=== PATIENT | female | born 1940 | race Caucasian/White ===

== ENCOUNTER 2016-09-06 11:37 | Outpatient (CLI) | payer OTHER, MEDICAID ==
[2012-11-12 17:34] VITALS: BP 105/60
== END 2016-09-06 11:40 ==
LOC: CARD 11:37
PROVIDERS: ATTEND Internal Medicine Cardiovascular Disease
DX: I42.9 Cardiomyopathy, unspecified (principal)
CPT/HCPCS: G0463

== ENCOUNTER 2017-09-19 13:54 | Outpatient (CLI) | payer OTHER ==
[2012-11-12 17:34] VITALS: BP 105/60
== END 2017-09-19 13:55 ==
LOC: CARD 13:54
PROVIDERS: ATTEND Internal Medicine Cardiovascular Disease
DX: I42.9 Cardiomyopathy, unspecified (principal); I10 Essential (primary) hypertension; Z72.0 Tobacco use; E78.5 Hyperlipidemia, unspecified; J44.9 Chronic obstructive pulmonary disease, unspecified
CPT/HCPCS: G0463

== ENCOUNTER 2018-08-14 11:28 | Outpatient (CLI) | payer OTHER ==
[2012-11-12 17:34] VITALS: BP 105/60
[2018-08-14 12:07] LABS: BASOPHILS % 0.7 (0.0-1.5); EOSINOPHILS % 7.7 % (0.0-6.8); MEAN CORPUSCULAR HEMOGLOBIN 31.4 pg (28.0-34.0); MONOCYTES % 6.1 % (0.0-11.0)
[2018-08-14 12:08] LABS: eGFR (Non-African) > 60
--- NOTE | 2018-08-14 12:23 | Diagnostic Imaging Report ---
ONEL DENIS [facility] [address] [facility] [address] 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 There are findings consistent with COPD. In the region of the right middle lobe, there is an asymmetric, lobulated, soft tissue density focus measuring 3.3 x 2.6 cm. Additionally, there is an asymmetric soft tissue density focus in the left perihilar region measuring 2.8 x 2.5 cm, partly obscured by the patient's pacemaker battery pack. There is a triple lead pacing device. There is no pleural effusion. Heart size is top normal with mild left ventricular prominence. There is pleural parenchymal thickening and nodularity at the right lung apex, probably chronic. Surgical clips are present of the right axilla. Impression: Asymmetric, rounded areas of soft tissue density are present in the region of the right middle lobe and in the left perihilar region, concerning for malignancy. Chest CT would be indicated for further assessment. COPD. Electronically signed on Aug 14, 2018 12:19:33 PM INCINERATOR PLANT [employer]ORER by: Viviana ESCOBEDO
--- NOTE | 2018-08-14 12:24 | Diagnostic Imaging Report ---
ONEL DENIS [facility] [address] [facility] [address] [address] Report Submission Date: Aug 14, 2018 12:22:34 PM FLOWER [employer]OP MANAGER Patient Study Name: TANVIR EWING Date: Aug 14, 2018 11:41:53 AM FLOWER SHOP MANAGER Modality Type: DX Gender: F Description: ABDOMEN : 42 Institution: [facility] Physician: ONEL DENIS KUB History: Constipation Two supine views of the abdomen were obtained which demonstrate diffusely increased stool throughout the colon consistent with moderate to severe constipation. No dilated loops of large or small bowel are noted. There is severe levorotary scoliosis of the lumbar spine. Impression: Moderate to severe constipation. Severe levorotary scoliosis of the lumbar spine. Electronically signed on Aug 14, 2018 12:22:34 PM FLOWER SHOP MANAGER by: Viviana ESCOBEDO
== END 2018-08-14 11:30 ==
LOC: LAB 11:28
PROVIDERS: ATTEND Family Medicine
DX: I25.10 Atherosclerotic heart disease of native coronary artery without angina pectoris (principal); K59.09 Other constipation; R91.8 Other nonspecific abnormal finding of lung field
CPT/HCPCS: 36415; 71046; 74018; 80053; 80061; 85025

== ENCOUNTER 2018-08-16 08:53 | Outpatient (CLI) | payer OTHER ==
[2012-11-12 17:34] VITALS: BP 105/60
--- NOTE | 2018-08-16 15:03 | Diagnostic Imaging Report ---
ONEL DENIS [facility] [address] [facility] [address] [address] Report Submission Date: Aug 16, 2018 2:29:35 PM LABEL FUSER TENDER Patient Study Name: TANVIR EWING Date: Aug 16, 2018 9:20:43 AM LABEL FUSER TENDER Modality Type: CT\SR Gender: F Description: CT CHEST W/ CONTRAST : 42 Institution: [facility] Physician: ONEL DENIS CT CHEST W/ CONTRAST HISTORY: ABDNORMAL CXR FROM 08/14/18, NO CHEST COMPLAINTS. TECHNIQUE: Scans through the chest are obtained following IV contrast administration 95 mL of omnipaque. FINDINGS: Multifocal nodules are present in both lungs with nodule in the anterior left upper lobe measuring 2.2 x 2 x 2.7 cm, with a nodule more inferiorly positioned in the anterior left upper lobe measuring 1.3 cm in diameter, nodular infiltrate in the lateral right middle lobe measuring 1 x 1.8 x 1 cm, nodule more centrally in the right middle lobe measuring 1.1 cm in diameter, and a 9 mm nodule in the medial right lower lobe. Multiple bilateral nodules such as this is suspicious for metastasis. Other possibility would be that of septic emboli in the appropriate clinical situation. Scarring in the apex is present. No infiltrative changes in the lungs are otherwise seen. No abnormal mediastinal or axillary adenopathy is identified. Aneurysmal dilatation of the ascending aorta is seen at 4 cm. Coronary artery calcifications are present otherwise the cardiovascular structures are unremarkable with normal pulmonary arteries without pulmonary emboli. A pacemaker overlies the left upper chest with electrodes in the right heart. Mild degenerative changes of the bony thorax is seen but no other focal abnormality is identified. Liver, gallbladder, spleen, pancreas, adrenal glands, and kidneys included on the study are unremarkable. IMPRESSION: Multifocal nodular densities in the lungs suspicious for metastasis. Aneurysmal dilatation of the ascending aorta. Electronically signed on Aug 16, 2018 2:29:35 PM LABEL FUSER TENDER by: Demar ESCOBEDO
== END 2018-08-16 08:55 ==
LOC: RAD 08:53
PROVIDERS: ATTEND Family Medicine
DX: R91.8 Other nonspecific abnormal finding of lung field (principal)
CPT/HCPCS: 71260; Q9967

== ENCOUNTER 2018-12-10 11:14 | Outpatient (CLI) | payer OTHER ==
[2012-11-12 17:34] VITALS: BP 105/60
--- NOTE | 2018-12-10 12:32 | Diagnostic Imaging Report ---
ONEL DENIS [facility] [address] [facility] [address] [place], [place]. [address] Report Submission Date: December 10, 2018 12:21:56 PM CDT Patient Study Name: TANVIR EWING Date: December 10, 2018 11:20:06 AM CDT Modality Type: CT Gender: F Description: CT C-SPINE W/O CONTRAS : 42 Institution: [facility] Physician: ONEL DENIS CT cervical spine without contrast History: Metastatic breast cancer Technique: Helically acquired images were obtained through the cervical spine without contrast. Findings: The dens is intact. The lateral masses of C1 and C2 are aligned. Vertebral body height is maintained throughout. There is moderate disc space narrowing at C6/7. No suspicious lytic or sclerotic lesions of the cervical spine are noted. At C3/4, there is moderate left foraminal narrowing secondary to facet arthropathy. At C4/5, there is moderate to severe facet arthropathy. The left foramen is patent. There is moderate right foraminal narrowing secondary to facet arthropathy and uncovertebral joint hypertrophy. At C5/6, there is moderate right foraminal narrowing secondary to facet arthropathy and uncovertebral joint hypertrophy. There is no central stenosis and the left foramen is patent. At C6/7, there is moderate left and severe right foraminal narrowing secondary to facet arthropathy and uncovertebral joint hypertrophy but there is no central stenosis. C7/T1: Unremarkable. There is an abnormal mixed solid and cystic mass at the lower pole of the left thyroid lobe measuring approximately 1.7 x 1.1 cm. Impression: No evidence for metastatic disease to the cervical spine. Degenerative findings of the cervical spine as described. Abnormal mixed solid and cystic mass of the lower pole of the left thyroid lobe. Consider thyroid ultrasound. Electronically signed on December 10, 2018 12:21:56 PM CDT by: Viviana ESCOBEDO
--- NOTE | 2018-12-10 12:33 | Diagnostic Imaging Report ---
ONEL DENIS [facility] [address] [facility] [address] [place], [place]. [address] Report Submission Date: December 10, 2018 12:32:37 PM CDT Patient Study Name: TANVIR EWING Date: December 10, 2018 11:29:49 AM CDT Modality Type: CT Gender: F Description: CT L-SPINE W/O CONTRAS : 42 Institution: [facility] Physician: ONEL DENIS CT lumbar spine without contrast History: Metastatic breast cancer Technique: Helically acquired images were obtained through the lumbar spine without contrast. Findings: There is moderate levoscoliosis. Vertebral body height is maintained. There is mild disc space narrowing with vacuum disc phenomenon at L3/4. There is heavy aortoiliac atherosclerosis. T12/L1: Unremarkable L1/2: Unremarkable L2/3: Unremarkable aside from mild facet arthropathy. L3/4: There is mild disc bulging and mild facet arthropathy without central stenosis or left foraminal narrowing. Secondary to the scoliotic curvature and disc bulging, there is mild right foraminal narrowing. L4/5: There is [id number] right and severe left facet arthropathy. There is no central stenosis. The neural foramina are patent. L5/S1: There is mild right and severe left facet arthropathy. There is no central stenosis or right foraminal narrowing. Secondary to a combination of facet arthropathy and endplate spondylosis, there is severe left foraminal narrowing. Impression: Moderate levoscoliosis and degenerative findings of the lumbar spine as described in the body of the report. No evidence for metastatic disease to the lumbar spine. Electronically signed on December 10, 2018 12:32:37 PM CDT by: Viviana ESCOBEDO
--- NOTE | 2018-12-10 13:34 | Diagnostic Imaging Report ---
ONEL DENIS [facility] [address] [facility] [address] [place], [place]. [address] Report Submission Date: December 10, 2018 1:32:01 PM CDT Patient Study Name: TANVIR EWING Date: December 10, 2018 11:23:06 AM CDT Modality Type: CT Gender: F Description: CT T-SPINE W/O CONTRAS : 42 Institution: [facility] Physician: ONEL DENIS CT thoracic spine History: Metastatic breast cancer Technique: Helically acquired images were obtained through the thoracic spine without contrast. Comparison: Chest CT dated August 16, 2018. Findings: Within the right aspect of the T1 vertebral body, there is a 4 mm round lytic lesion concerning for a small bone metastasis. No lytic or blastic bone lesions are noted elsewhere. When compared with a chest CT from August 16, 2018, there is a stable area of right upper lobe pleural parenchymal scarring. However, medially at the right upper lobe in close proximity to the hilum, there is a new mass measuring approximately 10 x 11 mm. Posteriorly at the superior segment right lower lobe, there is a mass which has increased in size from the 10-15 mm. There appears to be either a mass or region of infiltrate within the right middle lobe but only partly visible. The central canal is widely patent. Vertebral body height is maintained throughout. There is mild rightward curvature. Impression: Within the right aspect of the T1 vertebral body, there is a 4 mm lucent lesion, concerning for a small bone metastasis. New small mass at the right upper lobe and enlarging mass within the superior segment right lower lobe consistent with progressing metastatic disease. There is an apparent either mass or infiltrate within the right middle lobe but only limitedly assessed. Stable pleural parenchymal scarring at the right upper lobe. Electronically signed on December 10, 2018 1:32:01 PM CDT by: Viviana ESCOBEDO
== END 2018-12-10 11:16 ==
LOC: RAD 11:14
PROVIDERS: ATTEND Family Medicine Hospice and Palliative Medicine
DX: C50.919 Malignant neoplasm of unspecified site of unspecified female breast (principal); M89.9 Disorder of bone, unspecified; R91.8 Other nonspecific abnormal finding of lung field; M41.86 Other forms of scoliosis, lumbar region; E07.9 Disorder of thyroid, unspecified; M12.88 Other specific arthropathies, not elsewhere classified, other specified site
CPT/HCPCS: 72125; 72128; 72131

== ENCOUNTER 2018-12-11 10:10 | Outpatient (CLI) | payer OTHER ==
[2012-11-12 17:34] VITALS: BP 105/60
[2018-12-11 10:46] LABS: MEAN CORPUSCULAR HEMOGLOBIN 32.8 pg (28.0-34.0)
[2018-12-11 10:47] LABS: BASOPHILS % 0.8 % (0.0-1.5); EOSINOPHILS % 2.3 % (0.0-6.8); MONOCYTES % 14.1 % (0.0-11.0); NEUTROPHILS # 2.3 # k/uL (1.4-7.7)
== END 2018-12-11 10:11 ==
LOC: LAB 10:10
PROVIDERS: ATTEND Internal Medicine Hematology & Oncology
DX: C50.919 Malignant neoplasm of unspecified site of unspecified female breast (principal)
CPT/HCPCS: 36415; 85025

== ENCOUNTER 2019-01-09 13:05 | Outpatient (CLI) | payer OTHER ==
[2012-11-12 17:34] VITALS: BP 105/60
[2019-01-17 08:08] LABS: BASOPHILS % 0.6 % (0.0-1.5); NEUTROPHILS # 6.3 # k/uL (1.4-7.7)
== END 2019-01-09 13:10 | disposition home or self-care (01) ==
LOC: LAB 13:05
PROVIDERS: ATTEND Internal Medicine Hematology & Oncology
DX: C50.919 Malignant neoplasm of unspecified site of unspecified female breast (principal)
CPT/HCPCS: 36415; 85025